=== PATIENT | female | born 1995 | race Hispanic/Latino ===

== ENCOUNTER 2018-04-16 22:19 | Emergency (ER) | payer OTHER, SELFPAY ==
--- NOTE | 2018-04-16 23:05 | EDPHYS ---
Physician Documentation [facility] Name: Jaci Lowry Age: 23 yrs Sex: Female : 1995 Arrival Date: 04/16/2018 Time: 22:20 Bed 14 Private MD: ED Physician Angelo Ramirez HPI: 04/16 22:39 This 23 yrs old Female presents to ER via Ambulatory with complaints of Pain snw With Urination, Vaginal Pain. 22:39 The patient presents with urinary symptoms, dysuria, blisters to vaginal area. Onset: snw The symptoms/episode began/occurred suddenly, 2 day(s) ago, and became persistent. Modifying factors: The symptoms are alleviated by nothing. Severity of symptoms: At their worst the symptoms were moderate. The patient is sexually active, reportedly has a single partner, Spouse. The patient has not experienced similar symptoms in the past. The patient has not recently seen a physician. 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 - Social history:: Smoking status: Patient/guardian denies using tobacco. - Ebola Screening: : Patient negative for fever greater than or equal to 101.5 degrees Fahrenheit, and additional compatible Ebola Virus Disease symptoms. ROS: 22:38 Constitutional: Negative for fever, chills, and weight loss, Eyes: Negative for injury, snw pain, redness, and discharge, ENT: Negative for injury, pain, and discharge, Neck: Negative for injury, pain, and swelling, Cardiovascular: Negative for chest pain, palpitations, and edema, Respiratory: Negative for shortness of breath, cough, wheezing, and pleuritic chest pain, Abdomen/GI: Negative for abdominal pain, nausea, vomiting, diarrhea, and constipation, Back: Negative for injury and pain, MS/Extremity: Negative for injury and deformity, Skin: Negative for injury, rash, and discoloration, Neuro: Negative for headache, weakness, numbness, tingling, and seizure, Psych: Negative for depression, anxiety, suicide ideation, homicidal ideation, and hallucinations. 22:38 : Positive for urinary symptoms, burning with urination, blisters to vaginal area. Exam: 22:38 Constitutional: This is a well developed, well nourished patient who is awake, alert, snw and in no acute distress. Head/Face: Normocephalic, atraumatic. Eyes: Pupils equal round and reactive to light, extra-ocular motions intact. Lids and lashes normal. Conjunctiva and sclera are non-icteric and not injected. Cornea within normal limits. Periorbital areas with no swelling, redness, or edema. ENT: Nares patent. No nasal discharge, no septal abnormalities noted. Tympanic membranes are normal and external auditory canals are clear. Oropharynx with no redness, swelling, or masses, exudates, or evidence of obstruction, uvula midline. Mucous membranes moist. Neck: Trachea midline, no thyromegaly or masses palpated, and no cervical lymphadenopathy. Supple, full range of motion without nuchal rigidity, or vertebral point tenderness. No Meningismus. Chest/axilla: Normal chest wall appearance and motion. Nontender with no deformity. No lesions are appreciated. Cardiovascular: Regular rate and rhythm with a normal S1 and S2. No gallops, murmurs, or rubs. Normal PMI, no JVD. No pulse deficits. Respiratory: Lungs have equal breath sounds bilaterally, clear to auscultation and percussion. No rales, rhonchi or wheezes noted. No increased work of breathing, no retractions or nasal flaring. Abdomen/GI: Soft, non-tender, with normal bowel sounds. No distension or tympany. No guarding or rebound. No evidence of tenderness throughout. Back: No spinal tenderness. No costovertebral tenderness. Full range of motion. Skin: Warm, dry with normal turgor. Normal color with no rashes, no lesions, and no evidence of cellulitis. MS/ Extremity: Pulses equal, no cyanosis. Neurovascular intact. Full, normal range of motion. Neuro: Awake and alert, GCS 15, oriented to person, place, time, and situation. Cranial nerves II-XII grossly intact. Motor strength 5/5 in all extremities. Sensory grossly intact. Cerebellar exam normal. Normal gait. Vital Signs: 22:31 BP 131 / 99; Pulse 92; Resp 17 S; Temp 99.1(O); Pulse Ox 97% on R/A; Weight 133.81 kg jd3 (R); Height 5 ft. 11 in. (180.34 cm) (R); Pain 7/10; 22:31 Body Mass Index 41.14 (133.81 kg, 180.34 cm) jd3 MDM: 22:24 Patient medically screened. snw 23:05 Data reviewed: vital signs, nurses notes. Data interpreted: Pulse oximetry: on room air snw is 97 %. Interpretation: normal. Counseling: I had a detailed discussion with the patient and/or guardian regarding: the historical points, exam findings, and any diagnostic results supporting the discharge/admit diagnosis, the presence of at least one elevated blood pressure reading (>120/80) during this emergency department visit, the need for outpatient follow up, to return to the emergency department if symptoms worsen or persist or if there are any questions or concerns that arise at home. Special discussion: Based on the history and exam findings, there is no indication for further emergent testing or inpatient evaluation. I discussed with the patient/guardian the need to see the OB Gyne specialist for further evaluation of the symptoms. I discussed with the patient/guardian the need to see the primary care provider for further evaluation of the symptoms. 04/16 22:24 Order name: Urine Culture formerly [facility] 04/16 22:24 Order name: Urine Microscopic Only formerly [facility] 04/16 22:39 Order name: [facility]. Lab Test formerly [facility] 04/16 22:44 Order name: Urine Dipstick--Ancillary (enter results) ms 04/16 22:44 Order name: Urine --Ancillary (enter results) ms 04/16 22:24 Order name: Urine Test (obtain specimen); Complete Time: 22:38 snw 04/16 22:24 Order name: Urine Dipstick-Ancillary (obtain specimen); Complete Time: 22:38 snw Administered Medications: 23:05 Drug: Acyclovir 800 mg Route: PO; cc3 23:15 Follow up: Response: No adverse reaction cc3 Disposition: 04/17 06:47 Co-signature as Attending Physician, Angelo Ramirez MD I agree with the assessment and tw4 plan of care. Disposition: 04/16/18 23:05 Discharged to Home. Impression: Dysuria, Vaginitis, vulvitis and vulvovaginitis in diseases classified elsewhere. - Condition is Stable. - Discharge Instructions: Dysuria, Genital Herpes, How to Take a Sitz Bath. - Prescriptions for Valtrex 1 g Oral Tablet - take 1 tablet by ORAL route every 12 hours for 10 days; 20 tablet. - Medication Reconciliation Form, Thank You Letter, Antibiotic Education, Prescription Opioid Use form. - Follow up: Private Physician; When: 2 - 3 days; Reason: Recheck today's complaints, Continuance of care, Re-evaluation by your physician. Follow up: Emergency Department; When: As needed; Reason: Worsening of condition. Signatures: Dispatcher [employer] EDMS Camila Diop, PASCUAL-C NAIL ASSEMBLY MACHINE OPERATOR-Ifeanyi Kathleen RN RN jAngelo Garcia MD MD tw4 Keily Herr3 Corrections: (The following items were deleted from the chart) 04/16 23:20 23:05 04/16/2018 23:05 Discharged to Home. Impression: Dysuria; Vaginitis, vulvitis and cc3 vulvovaginitis in diseases classified elsewhere. Condition is Stable. Discharge Instructions: Dysuria, Genital Herpes. Prescriptions for Valtrex 1 g Oral Tablet - take 1 tablet by ORAL route every 12 hours for 10 days; 20 tablet. and Forms are Medication Reconciliation Form, Thank You Letter, Antibiotic Education, Prescription Opioid Use. Follow up: Private Physician; When: 2 - 3 days; Reason: Recheck today's complaints, Continuance of care, Re-evaluation by your physician. Follow up: Emergency Department; When: As needed; Reason: Worsening of condition. snw
--- NOTE | 2018-04-16 23:05 | ER ---
Nurse's Notes [facility] Name: Jaci Lowry Age: 23 yrs Sex: Female : 1995 Arrival Date: 04/16/2018 Time: 22:20 Bed 14 Private MD: Diagnosis: Dysuria;Vaginitis, vulvitis and vulvovaginitis in diseases classified elsewhere Presentation: 04/16 22:29 Presenting complaint: Patient states: "I think I have a UTI and a yeast infection. I jd3 have been having real bad itching and burning down there and burning with urination.". Transition of care: patient was not received from another setting of care. Onset of symptoms was April 16, 2018. Risk Assessment: Do you want to hurt yourself or someone else? Patient reports no desire to harm self or others. Initial Sepsis Screen: Does the patient meet any 2 criteria? No. Patient's initial sepsis screen is negative. Does the patient have a suspected source of infection? No. Patient's initial sepsis screen is negative. Care prior to arrival: None. 22:29 Method Of Arrival: Ambulatory j 22:29 Acuity: CORAL 4 jd3 Triage Assessment: 22:30 General: Appears in no apparent distress. comfortable. General: Behavior is calm, cc3 cooperative, appropriate for age. Pain: Complains of pain in vaginal area and during urination. 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 - Social history:: Smoking status: Patient/guardian denies using tobacco. - Ebola Screening: : Patient negative for fever greater than or equal to 101.5 degrees Fahrenheit, and additional compatible Ebola Virus Disease symptoms. Screenin:34 Abuse screen: Denies threats or abuse. Nutritional screening: No deficits noted. jd3 Tuberculosis screening: No symptoms or risk factors identified. Fall Risk Ambulatory Aid- None/Bed Rest/Nurse Assist (0 pts). Gait- Normal/Bed Rest/Wheelchair (0 pts) Mental Status- Oriented to own ability (0 pts). Total Herrera Fall Scale indicates No Risk (0-24 pts). Assessment: 22:30 Pain: Complains of pain in vaginal area and pain with urination. cc3 23:15 Reassessment: Patient appears in no apparent distress at this time. Patient and/or cc3 family updated on plan of care and expected duration. Pain level reassessed. Patient is alert, oriented x 3, equal unlabored respirations, skin warm/dry/pink. SANDRITA Jensen discharged home the patient with prescription given. No IV cannula in situ. Patient left ER vitally stable and ambulatory with her family. Vital Signs: 22:31 BP 131 / 99; Pulse 92; Resp 17 S; Temp 99.1(O); Pulse Ox 97% on R/A; Weight 133.81 kg jd3 (R); Height 5 ft. 11 in. (180.34 cm) (R); Pain 7/10; 22:31 Body Mass Index 41.14 (133.81 kg, 180.34 cm) jd3 ED Course: 22:20 Patient arrived in ED. am2 22:24 [facility]C [facility] snw 22:24 Angelo Ramirez MD is Attending Physician. snw 22:31 Triage completed. jd3 22:33 Arm band placed on. jd3 22:34 Patient has correct armband on for positive identification. Bed in low position. Call jd3 light in reach. Side rails up X 1. Adult w/ patient. 22:35 vaginal swab taken by SANDRITA Jensen. cc3 22:38 Urine collected: clean catch specimen, clear. cb2 22:42 Keily Herr is Primary Nurse. cc3 23:15 Patient did not have IV access during this emergency room visit. cc3 Administered Medications: 23:05 Drug: Acyclovir 800 mg Route: PO; cc3 23:15 Follow up: Response: No adverse reaction cc3 Outcome: 23:05 Discharge ordered by . snw 23:15 Discharged to home ambulatory, with family. cc3 23:15 Condition: stable 23:15 Discharge instructions given to patient, family, Instructed on discharge instructions, follow up and referral plans. medication usage, Demonstrated understanding of instructions, follow-up care, medications, Prescriptions given X 1. 23:20 Patient left the ED. cc3 Addendum: 04/20/2018 14:44 Addendum: Culture Results: Positive urine culture. Bacteria is resistant to, has a a5 intermediate sensitivity, or is not tested against prescribed antibiotics. Report given to ANTONIO for further evaluation and then to recreation center director for follow up with patient. Prescription called-in to pharmacy of choice. to [facility] pharmacy in [place], [place] per pt's request (Levaquin 500mg daily x 5 days per Alanna Micheel NP). Signatures: Camila Diop, PAS[employer]-C WASHING AND SCREENING PLANT SUPERVISOR-Csnw Geena Jensen, RN RN aa5 Ekaterina Mcnally Christian cb2 Davies, Jonathon RN RN jd3 Keily Herr cc3 Corrections: (The following items were deleted from the chart) 04/17 02:26 04/16 22:35 vaginal swab cc3 cc3
[2018-04-16] MEDS ORDERED: ACYCLOVIR 400 MG TABLET ONE (23:15)
[2018-04-16 23:31] LABS: Urine Bacteria <20 /HPF (<20); Urine Culture Reflex Order NOT NEEDED; Urine RBC <5 /HPF (NONE SEEN)
[2018-04-16 23:32] LABS: Urine Blood TRACE (NEG); Urine Glucose 2+ (NEG); Urine Protein NEGATIVE (NEG)
== END 2018-04-16 23:20 | disposition home or self-care (01) ==
LOC: ER 22:19
DX: N77.1 Vaginitis, vulvitis and vulvovaginitis in diseases classified elsewhere (principal)
CPT/HCPCS: 81003; 81015; 81025; 87077; 87086; 87088; 87186; 99283